=== PATIENT | female | born 1950 | race Caucasian/White ===

== ENCOUNTER 2016-12-30 10:29 | Emergency (ER) | payer MEDICARE, OTHER ==
[~2016-12-30] VITALS: Ht 160 cm; Wt 76.9 kg
[~2016-12-30 10:29] MED LIST: ALBU0.08 NEB; ALBU0.086 INH; ALBU6.7H INH; ENAL10TA PO; ENAL10TA7 PO; LEVA500T PO; LEVO100T4 PO; LEVO125T4 PO; MIDO5TAB PO; MOME17I; OXYB5TAB10 PO; PANT20TA2 PO; PRED20 PO; SIMV40TA PO; SPIRCAP INH; SUMA50TA2 PO; ZOCO40TA PO
[2016-12-30 10:36] VITALS: BP 149/84; PULSE 76; RESP 18; TEMP 97.6; O2SAT 93
[2016-12-30] MEDS ORDERED: SPIRCAP INH (10:55)
[2016-12-30] MEDS ORDERED: SUMA50TA2 PO (10:55)
--- NOTE | 2016-12-30 11:10 | PD ---
HPI Chief Complaint: Musculoskeletal Complaint Time Seen by Provider: 11:09 Travel History International Travel<30 days: No Contact w/Intl Traveler<30days: No Traveled to known affect area: No History of Present Illness HPI 66-year-old female presents the emergency Department with acute onset lower lumbar/pelvic pain since attempting to lift her grocery cart onto the bus several days ago. Patient states she lifted her cart and twisted and felt a pop in her lower back with sudden onset pain. Patient is been taking over-the- counter medications and trying to work through it, but her symptoms are worse today, to the point of having difficulty getting out of bed. Patient states the pain does go down into the buttocks and upper lower extremities. She denies weakness. She denies numbness or saddle numbness. Patient has no history of previous back issues. She has no changes in her bowel or bladder. No fever, chills, nausea, vomiting, or diarrhea. Pain is described as an ache with occasional sharp with motions. It is an 8 out of 10 at worst. Patient has no known drug allergies. PFSH Past Medical History Asthma: No Blood Disorders: No Depression: Yes Heart Rhythm Problems: Yes Cancer: Yes (FAMILY HISORTY) Cardiovascular Problems: Yes High Cholesterol: Yes Chemotherapy: No Chest Pain: No Congestive Heart Failure: No COPD: Yes Cerebrovascular Accident: Yes (HTN) Diabetes: No Diminished Hearing: No Endocrine: No GERD: Yes Genitourinary: No Headaches: Yes Hypertension: Yes Immune Disorder: No Musculoskeletal: No Neurologic: Yes Psychiatric: No Respiratory: Yes (COPD) Immunizations Current: Yes Migraines: Yes Myocardial Infarction: No Pancreatitis: Yes Radiation Therapy: No Renal Failure: Yes (STAGE III KIDNEY) Sleep Apnea: No Thyroid Disease: Yes Ulcer: Yes Tetanus Vaccination: < 5 Years Influenza Vaccination: No PNEUMOCCOCAL Vaccine (Year): 2 ?: Not Menopausal: Yes Ovarian Cysts: Yes Tubal Ligation: Yes Past Surgical History AICD: No Appendectomy: Yes Gynecologic Surgery: Yes (CYST RT BREAST X 2, BILAT OOPHERECTOMY) Hysterectomy: Yes (partial) Joint Replacement: No Oral Surgery: Yes Pacemaker: No Other Surgery: Yes (CYSTS FROM RIGHT BREAST ) Social History Alcohol Use: No Tobacco Use: No (QUIT 2002) Substance Use: No Allergies-Medications (Allergen,Severity, Reaction): Coded Allergies: No Known Allergies (Verified , 12/30/16) Reported Meds & Prescriptions Reported Meds & Active Scripts Active Tramadol (Tramadol HCl) 50 Mg Tab 50 Mg PO Q6H PRN Prednisone 20 Mg Tab 20 Mg PO BID Orphenadrine CR (Orphenadrine Citrate) 100 Mg Tab 100 Mg PO Q12HR Ditropan (Oxybutynin Chloride) 5 Mg Tab 5 Mg PO Q12HR Levothyroxine (Levothyroxine Sodium) 125 Mcg Tab 125 Mcg PO DAILY Albuterol Neb (Albuterol Sulfate) 2.5 Mg/3 Ml Neb 2.5 Mg NEB Q4HR NEB While awake Simvastatin 40 Mg Tab 40 Mg PO HS Enalapril (Enalapril Maleate) 10 Mg Tab 10 Mg PO DAILY Pantoprazole (Pantoprazole Sodium) 20 Mg Tab 20 Mg PO DAILY Reported Sumatriptan (Sumatriptan Succinate) 50 Mg Tab 50 Mg PO ONCE PRN If a satisfactory response has not been obtained at 2 hours, a second dose may be administered Spiriva Handihaler (Tiotropium Inh) 18 Mcg Cap 18 Mcg INH DAILY 1 capsule = 18 mcg Review of Systems Except as stated in HPI: all other systems reviewed are Neg General / Constitutional: No: Fever Eyes: No: Visual changes HENT: No: Headaches Cardiovascular: No: Chest Pain or Discomfort Respiratory: No: Shortness of Breath Gastrointestinal: No: Abdominal Pain Genitourinary: No: Dysuria Musculoskeletal: Positive: Myalgias, Arthralgias, Limited ROM, Pain Skin: No Rash Neurologic: No: Weakness Psychiatric: No: Depression Endocrine: No: Polydipsia Hematologic/Lymphatic: No: Easy Bruising Physical Exam Narrative GENERAL: Patient appears in mild to moderate distress. SKIN: Warm and dry. Normal color. Normal turgor. No signs of trauma. No rash. HEAD: Atraumatic. Normocephalic. EYES: Pupils equal and round. No scleral icterus. No injection or drainage. ENT: No nasal bleeding or discharge. Mucous membranes pink and moist. Pharynx is normal. NECK: Trachea midline. No JVD. Neck is supple nontender. CARDIOVASCULAR: Regular rate and rhythm. RESPIRATORY: No accessory muscle use. Clear to auscultation. Breath sounds equal bilaterally. MUSCULOSKELETAL: Extremities without clubbing, cyanosis, or edema. No obvious deformities. Patient has severe tenderness bilaterally in the sacroiliac region lower lumbar spine. No specific bony tenderness is noted. Patient seems to have mild straight leg raise pain bilaterally but is difficult to determine if this is true sciatica versus just muscle skeletal pain in the sacroiliac region. No bony deformity is noted. Deep tendon reflexes are 2+ and equal bilaterally in the knees and Achilles. Patient is able to ambulate, although it is painful. NEUROLOGICAL: Awake and alert. No obvious cranial nerve deficits. Motor grossly within normal limits. Five out of 5 muscle strength in the arms and legs. Normal speech. PSYCHIATRIC: Appropriate mood and affect; insight and judgment normal. Data Data Last Documented VS Vital Signs Date Time Temp Pulse Resp B/P Pulse Ox O2 Delivery O2 Flow Rate FiO2 12/30/16 10:36 97.6 76 18 149/84 93 Orders Spine, Lumbar Comp W/Obliq (12/30/16 11:14) Ketorolac Inj (Toradol Inj) (12/30/16 11:15) Prednisone (Deltasone) (12/30/16 11:15) MDM Medical Decision Making Medical Screen Exam Complete: Yes Emergency Medical Condition: Yes Medical Record Reviewed: Yes Differential Diagnosis Possible vertebral fracture. Sacroiliitis. Sciatica. Lumbar strain. Muscle spasm Narrative Course Patient is medically stable at time of exam. X-rays of the lumbar spine are ordered. Patient is given 30 mg Toradol IM as well as 60 mg prednisone by mouth. X-ray show no acute process other than arthritis. There are no signs of compression fracture or spondylolisthesis. Per radiologist. Patient is felt stable for discharge. Patient is treated for sacroiliitis/sciatica with prednisone 20 mg twice a day 1 week. Patient also given tramadol 50 mg one every 6 hours when necessary pain #20. Patient's also given Norflex 100 mg one every 12 hours when necessary muscle spasm #10. Patient can take Tylenol as well for pain if necessary. Recommend heat followed by ice to this area and try to keep moving. Recommend follow with primary care physician in the next week to ensure improvement or return to the emergency Department with worsening symptoms as needed. Diagnosis Primary Impression: Lumbago of lumbar region with sciatica Additional Impression: Bilateral sacroiliitis Referrals: Primary Care Physician Patient Instructions: Acute Low Back Pain (ED), General Instructions, Lower Back Exercises (ED), Sacroiliitis (ED) Additional Instructions: Patient is given 30 mg Toradol IM as well as 60 mg prednisone by mouth. X-ray show no acute process other than arthritis. There are no signs of compression fracture or spondylolisthesis. Per radiologist. Patient is felt stable for discharge. Patient is treated for sacroiliitis/sciatica with prednisone 20 mg twice a day 1 week. Patient also given tramadol 50 mg one every 6 hours when necessary pain #20. Patient's also given Norflex 100 mg one every 12 hours when necessary muscle spasm #10. Patient can take Tylenol as well for pain if necessary. Recommend heat followed by ice to this area and try to keep moving. Recommend follow with primary care physician in the next week to ensure improvement or return to the emergency Department with worsening symptoms as needed. Scripts Tramadol 50 Mg Tab50 Mg PO Q6H PRN (PAIN) #20 TAB Prov:Adriana Salazar DO 12/30/16 Prednisone 20 Mg Tab20 Mg PO BID #14 TAB Prov:Adriana Salazar DO 12/30/16 Orphenadrine ER 12 HR (Orphenadrine CR)100 Mg [id number] Mg PO Q12HR #10 TAB Prov:Adriana Salazar DO 12/30/16 Disposition: 01 DISCHARGE HOME Condition: Stable Tian Dueñas Dec 30, 2016 11:09
[2016-12-30] MEDS ORDERED: predniSONE 20 MG TAB PO ONE (11:15)
[2016-12-30] MEDS ORDERED: KETOROLAC TROMETHAMINE 60 MG/2 ML (IM) VIAL IM ONE (11:15)
[2016-12-30] MEDS ORDERED: PRED20 PO (12:12)
[2016-12-30] MEDS ORDERED: TRAM50TA PO (12:12)
[2016-12-30] MEDS ORDERED: ORPH100T99 PO (12:12)
--- NOTE | 2016-12-30 12:19 | RADHPO ---
EXAM DATE/TIME: 12/30/2016 11:52 [facility] COMPARISON: No previous studies available for comparison. INDICATIONS : Low back pain for 3 days, twisted the wrong way. MEDICAL HISTORY : Hypertension. Chronic obstructive pulmonary disease. Emphysema. Afib. Pancreatitus. Ovarian cyst. GERD. Renal failure. SURGICAL HISTORY : Appendectomy. Hysterectomy. Tubal ligation. Bilateral oopherectomy. ENCOUNTER: Initial ACUITY: 3 days PAIN SCORE: 8/10 LOCATION: Right lumbar spine. FINDINGS: There are five non-rib bearing vertebral bodies. The vertebral bodies are in normal alignment withou t evidence of subluxation or scoliosis. The disc spaces are maintained. The posterior elements are intact without evidence of spondylolysis. There are mild degenerative changes involving the lower fa cets with sclerosis and narrowing. The pedicles are intact. Bony mineralization is normal. No fract ure is identified. CONCLUSION: 1. Mild degenerative changes involving the lower facet joints. 2. No acute fracture or malalignment. Rodriguez Baltazar MD on December 30, 2016 at 12:16 Board Certified Radiologist. This report was verified electronically.
[2017-01-16] MEDS ORDERED: PANT20TA2 PO (11:06)
[2017-01-16] MEDS ORDERED: ENAL10TA PO (11:06)
[2017-01-16] MEDS ORDERED: SIMV40TA PO (11:06)
[2017-01-28] MEDS ORDERED: IPRA17I INH (10:45)
[2017-01-29] MEDS ORDERED: SPIRCAP INH (14:04)
== END 2016-12-30 12:31 | disposition home or self-care (01) ==
LOC: PHEFT 10:29
DX: M46.1 Sacroiliitis, not elsewhere classified (principal); E78.00 Pure hypercholesterolemia, unspecified; I10 Essential (primary) hypertension; J44.9 Chronic obstructive pulmonary disease, unspecified; Z86.73 Personal history of transient ischemic attack (TIA), and cerebral infarction without residual deficits
CPT/HCPCS: 72110; 99283; J1885; J7512